=== PATIENT | female | born 1950 | race Caucasian/White ===

== ENCOUNTER 2018-06-01 14:13 | Emergency (ER) | payer MEDICARE ==
[2018-06-01 16:12] LABS: %Lymphocytes 47.9 % (21.0-51.0); %Neutrophils 40.1 % (42.0-75.0); Hemoglobin 12.5 g/dL (12.0-16.0); Manual Diff?? NO; Mean Corpuscular HGB CONC 32.3 g/dL (32.0-36.0); Mean Corpuscular Hemoglobin 31.3 pg (27.0-31.0); Mean Corpuscular Volume 96.8 fL (78.0-98.0); Mean Platelet Volume 6.8 fL (7.4-10.4); Platelet Count 219 thou/uL (130-400); RBC Distribution Width 11.9 % (11.5-14.5); Red Blood Cell (RBC) Count 3.98 mill/uL (4.20-5.40); White Blood Cell (WBC) Count 5.2 thou/uL (4.8-10.8)
[2018-06-01 16:13] LABS: #Basophils 0.1 thou/uL (0.0-0.2); #Eosinphils 0.2 thou/uL (0.0-0.7); #Lymphocytes 2.5 thou/uL (1.20-3.40); #Monocytes 0.4 thou/uL (0.11-0.59); #Neutrophils 2.1 thou/uL (1.40-6.50); %Basophils 1.9 % (0.0-1.0); %Eosinophils 3.2 % (0.0-10.0); %Monocytes 6.9 % (0.0-10.0)
[2018-06-01 16:16] LABS: Potassium 3.2 mmol/L (3.5-5.1); Sodium 143 mmol/L (136-145)
[2018-06-01 16:17] LABS: ALT (SGPT) 25 U/L (8-55); AST (SGOT) 22 U/L (5-34); Albumin 4.1 g/dL (3.4-4.8); Alkaline Phosphatase 58 U/L (40-150); Anion Gap 14 mmol/L (10-20); BUN (Urea Nitrogen) 16 mg/dL (9.8-20.1); Bilirubin, Total 0.6 mg/dL (0.2-1.2); Calc. Creatinine Clearance 0 mL/min (70-130); Calcium 9.5 mg/dL (7.8-10.44); Carbon Dioxide 30 mmol/L (23-31); Chloride 102 mmol/L (98-107); Estimated GFR-MDRD 64; Globulin 2.6 g/dL (2.4-3.5); Glucose 178 mg/dL (80-115); Protein, Total 6.7 g/dL (5.8-8.1)
[2018-06-01] MEDS ORDERED: Potassium Chloride 20 MEQ TAB ONE (16:31)
--- NOTE | 2018-06-01 16:57 | RAD ---
TWO VIEW CHEST: 06/01/18 INDICATION: Pain. FINDINGS: The lungs are clear. There is no effusion or pneumothorax. The cardiac silhouette is normal in size. Osseous structures intact. IMPRESSION: No focal consolidation. POS: [id number]
[2018-06-01 18:07] LABS: CKMB 1.1 ng/mL (0-6.6); Troponin I 0.043 ng/mL (< 0.028)
[2018-06-01] MEDS ORDERED: Enoxaparin Sodium 30 MG/0.3 ML SYRINGE ONE (18:46)
[2018-06-01] MEDS ORDERED: Enoxaparin Sodium 60 MG/0.6 ML SYRINGE ONE (18:46)
[2018-06-01] MEDS ORDERED: Nitroglycerin 0.4 MG TAB (25 Tab Bottle) ONE (21:11)
== END 2018-06-01 21:30 | disposition short-term general hospital (02) ==
LOC: MADERS 14:13
DX: I24.9 Acute ischemic heart disease, unspecified (principal); I10 Essential (primary) hypertension; K21.9 Gastro-esophageal reflux disease without esophagitis
CPT/HCPCS: 36415; 71046; 80053; 82553; 84484; 85025; 96372; J1650